=== PATIENT | male | born 1980 | race Caucasian/White ===

== ENCOUNTER 2016-08-13 11:28 | Emergency (ER) | payer SELFPAY ==
[~2016-08-13] VITALS: Ht 182.9 cm; Wt 117.9 kg
[2016-08-13 13:48] VITALS: BP 138/100
== END 2016-08-13 14:43 | disposition home or self-care (01) ==
LOC: ER 11:31
DX: S93.402A Sprain of unspecified ligament of left ankle, initial encounter (principal); W01.0XXA Fall on same level from slipping, tripping and stumbling without subsequent striking against object, initial encounter; Y93.89 Activity, other specified; Y92.89 Other specified places as the place of occurrence of the external cause; Y99.8 Other external cause status
CPT/HCPCS: 73610

== ENCOUNTER 2023-08-18 12:06 | Emergency (ER) | payer MEDICAID ==
[~2023-08-18] VITALS: Ht 180.3 cm; Wt 129.5 kg
[2023-08-18 13:12] VITALS: BP 161/96; PULSE 116; RESP 18; TEMP 97.7; O2SAT 96
[2023-08-18] MEDS: KETOROLAC TROMETH 60MG/2ML VIAL IM ONE (13:27)
[2023-08-18] MEDS: methylPREDNISolone SOD SUCC 125 MG/2 ML VL IM ONE (13:27)
[2023-08-18] MEDS ORDERED: COLC1CAP PO (13:49)
[2023-08-18] MEDS ORDERED: INDO50CA82 PO (13:49)
== END 2023-08-18 13:51 | disposition home or self-care (01) ==
LOC: ER 12:06
DX: M10.042 Idiopathic gout, left hand (principal); M10.061 Idiopathic gout, right knee; Z79.899 Other long term (current) drug therapy
CPT/HCPCS: 96372; 99284; J1885; J2919